=== PATIENT | male | born 1990 | race Caucasian/White ===

== ENCOUNTER 2016-10-07 19:01 | Emergency (ER) | payer OTHER ==
[~2016-10-07] VITALS: Ht 182.9 cm; Wt 117.9 kg
[2016-10-07 19:36] VITALS: BP 143/76
--- NOTE | 2016-10-07 19:54 | NUR ---
PT RETURN FROM XRAY TO LOBBY
--- NOTE | 2016-10-07 22:34 | NUR ---
PT TAKEN TO OF2
--- NOTE | 2016-10-07 22:34 | NUR ---
Dr. Leos evaluating patient
--- NOTE | 2016-10-07 22:34 | NUR ---
26Y M BIB SELF C/O LEFT KNEE PAIN, S/P FALL LAST TUESDAY. BUT STATES NO PAIN AT THE MOMENT. PT REQUESTING MEDICAL CLEARANCE BY ER MD TO GO BACK TO WORK. PT DENIES ANY MEDICAL HX, ALLERGIES, CP, OR SOB. PT STATES 0/10 PAIN.
--- NOTE | 2016-10-07 22:46 | NUR ---
Patient discharged with v/s stable. Written and verbal after care instructions given and explained. Patient verbalized understanding. Ambulatory with steady gait. All questions addressed prior to discharge. Advised to follow up with PMD.
[2016-10-07 22:48] VITALS: BP 136/79
== END 2016-10-07 22:46 | disposition home or self-care (01) ==
LOC: MED 19:01
DX: S80.02XA Contusion of left knee, initial encounter (principal); X58.XXXA Exposure to other specified factors, initial encounter; Y93.89 Activity, other specified; Y92.89 Other specified places as the place of occurrence of the external cause; Y99.8 Other external cause status
CPT/HCPCS: 73562; 99284

== ENCOUNTER 2016-11-06 17:30 | Emergency (ER) | payer OTHER ==
[~2016-11-06] VITALS: Ht 182.9 cm; Wt 106.1 kg
[2016-11-06 18:15] VITALS: BP 118/78
--- NOTE | 2016-11-06 19:24 | NUR ---
PATIENT AMBULATED TO ER OF2.
--- NOTE | 2016-11-06 19:33 | NUR ---
PATIENT BEING EVALUATED BY DR. OROSCO.
[2016-11-06 19:35] VITALS: BP 121/71
== END 2016-11-06 19:35 | disposition home or self-care (01) ==
LOC: MED 17:30
DX: M54.9 Dorsalgia, unspecified (principal)
CPT/HCPCS: 99281

== ENCOUNTER 2018-04-01 18:23 | Emergency (ER) | payer OTHER ==
[~2018-04-01] VITALS: Ht 182.9 cm; Wt 127.0 kg
[2018-04-01 18:35] VITALS: BP 116/72
[2018-04-01 20:11] VITALS: BP 118/75
== END 2018-04-01 20:12 | disposition home or self-care (01) ==
LOC: MED 18:23
DX: B95.8 Unspecified staphylococcus as the cause of diseases classified elsewhere (principal)
CPT/HCPCS: 99283

== ENCOUNTER 2019-07-22 13:41 | Emergency (ER) | payer OTHER ==
[~2019-07-22] VITALS: Ht 182.9 cm; Wt 113.4 kg
[2019-07-22 13:46] VITALS: BP 146/82
--- NOTE | 2019-07-22 14:01 | NUR ---
29 Y/O MALE PRESENTS WITH RIGHT BIG TOE ABRASION S/P MISSING STEP AND HITTING TOE ON TUESDAY. CRUSTED BLOOD/SWELLING/ ERYTHEMA NOTED AT SITE, TOE NAIL IS LOOSE ON TOE. PAIN 6/10 SHARP PAIN RADIATING TO FOOT. BIG TOE IS THE ONLY TOE AFFECTED. PT REPORTS THERE IS NO SENSATION ON TOE DURING PRICK TEST. CAP REFILL <3. PEDAL PULSE +. ROM IN TACT IN BLE. PT ABLE TO AMBULATE TO BED. RESP EVEN AND UNLABORED. DENIES SOB/CP. NO PMH NKA
[2019-07-22] MEDS ORDERED: IBUPROFEN 600 MG TAB PO ONE (14:05)
[2019-07-22] MEDS ORDERED: LIDOCAINE MPF 1% 10 MG/ML VIAL INJ ONE (14:05)
--- NOTE | 2019-07-22 14:20 | NUR ---
ERMD AT BEDSIDE DOING LAC REPAIR
[2019-07-22] MEDS ORDERED: BACITRACIN OINT 500 UNITS/GM PKT TP ONE (14:40)
[2019-07-22 14:59] VITALS: BP 132/65
--- NOTE | 2019-07-22 14:59 | NUR ---
Patient discharged with v/s stable. Written and verbal after care instructions given and explained. Patient alert, oriented and verbalized understanding of instructions. Ambulatory with steady gait. All questions addressed prior to discharge. ID band removed. Patient advised to follow up with PMD. Rx of BACITRACIN, IBUPROFEN given. Patient educated on indication of medication including possible reaction and side effects. Opportunity to ask questions provided and answered.
== END 2019-07-22 14:59 | disposition home or self-care (01) ==
LOC: MED 13:41
DX: S91.201A Unspecified open wound of right great toe with damage to nail, initial encounter (principal); X58.XXXA Exposure to other specified factors, initial encounter; Y93.89 Activity, other specified; Y92.89 Other specified places as the place of occurrence of the external cause; Y99.8 Other external cause status
CPT/HCPCS: 11730; 73630; 99284; J2001; Q0092; 99285

== ENCOUNTER 2020-03-10 20:37 | Emergency (ER) | payer OTHER ==
[~2020-03-10] VITALS: Ht 177.8 cm; Wt 120.2 kg
[2020-03-10 20:48] VITALS: BP 138/70
--- NOTE | 2020-03-10 20:52 | NUR ---
PT TAKEN TO BED 3
--- NOTE | 2020-03-10 20:58 | NUR ---
29 Y/O MALE PRESENTED TO ED C/O LT ANKLE PAIN. PT STATES HE WAS AT A [employer] AND TWISTED HIS ANKLE IN A POTHOLE. PT STATES HE DIDN'T FEEL ANY PAIN AT FIRST BUT IT HAS BEEN PROGRESSIVELY GETTING WORSE. PT RATES PAIN 4/10 , LONG HE IS NOT WALKING. +CMS, +ROM, +BL STRONG PEDAL PULSES , CAP REFIL < 3 SEC , SKIN WARM , PINK AND DRY. PT DENIES NUMBNESS & TINGLING IN TOES. PT STATES HE HAS ONLY PUT CREAM ON HIS ANKLE FOR PAIN. PT RESTING IN BED, LOCKED AND IN LOWEST POSITION, HOB ELEVATED, SIDE RAIL X1 FOR PT SAFETY. ERMD MADE AWARE OF PT STATUS. VSS. PMH: DENIES NKA
--- NOTE | 2020-03-10 21:08 | NUR ---
X-Ray at bedside.
--- NOTE | 2020-03-10 21:38 | NUR ---
Dr. Forrest examining patient.
--- NOTE | 2020-03-10 21:43 | NUR ---
MARRY WRAP APPLIED TO PT L ANKLE. +CSM
[2020-03-10 21:53] VITALS: BP 138/70
== END 2020-03-10 21:53 | disposition home or self-care (01) ==
LOC: MED 20:37
DX: S93.402A Sprain of unspecified ligament of left ankle, initial encounter (principal); F17.210 Nicotine dependence, cigarettes, uncomplicated; Z71.6 Tobacco abuse counseling; X58.XXXA Exposure to other specified factors, initial encounter; Y93.89 Activity, other specified; Y92.89 Other specified places as the place of occurrence of the external cause; Y99.8 Other external cause status
CPT/HCPCS: 73610; 99283

== ENCOUNTER 2023-12-05 13:38 | Emergency (ER) | payer OTHER ==
[~2023-12-05] VITALS: Ht 182.9 cm; Wt 127.0 kg
[2023-12-05 13:49] VITALS: BP 127/86; PULSE 86; RESP 19; TEMP 97.6; O2SAT 96
[2023-12-05] MEDS ORDERED: IBUP-2213 PO (14:37)
[2023-12-05] MEDS: KETOROLAC 30 MG/ML VIAL IM ONE (14:41)
== END 2023-12-05 14:53 | disposition home or self-care (01) ==
LOC: MED 13:38
DX: S93.402A Sprain of unspecified ligament of left ankle, initial encounter (principal); R03.0 Elevated blood-pressure reading, without diagnosis of hypertension; Z79.1 Long term (current) use of non-steroidal anti-inflammatories (NSAID); X58.XXXA Exposure to other specified factors, initial encounter; Y93.I9 Activity, other involving external motion; Y92.89 Other specified places as the place of occurrence of the external cause; Y99.8 Other external cause status
CPT/HCPCS: 73610; 96372; 99283; J1885